=== PATIENT | female | born 1980 | race Caucasian/White ===

== ENCOUNTER 2017-03-13 03:31 | Emergency (ER) | payer OTHER ==
[2017-03-13] MEDS ORDERED: NS 0.9% 1000 ML* 1,000 ML IV ONE ×2 (03:45→08:13)
[2017-03-13] MEDS ORDERED: Morphine INJ* 4 MG/ML 1 ML SYRINGE IV ONE (03:46)
[2017-03-13] MEDS ORDERED: Ondansetron INJ* 2 MG/ML VIAL IV ONE ×2 (03:47→07:26)
[2017-03-13 04:49] LABS: Hematocrit 44 % (35-47); Hemoglobin 14.7 g/dl (12.0-16.0); Mean Corpuscular HGB Conc 33 g/dl (31-36); Mean Corpuscular Hemoglobin 29 pg (27-31); Mean Corpuscular Volume 87 fL (80-97); Mean Platelet Volume 9 um3 (7.4-10.4); Red Blood Count 5.08 10^6/ul (4.0-5.4); Red Cell Distribution Width 13 % (10.5-15); White Blood Count 17.3 10^3/ul (3.5-10.8)
[2017-03-13 05:01] LABS: ALT 17 U/L (7-52); AST 18 U/L (13-39); Albumin 4.8 g/dL (3.2-5.2); Alkaline Phosphatase 73 U/L (34-104); Anion Gap 9 mmol/L (2-11); Blood Urea Nitrogen 16 mg/dL (6-24); CO2 Carbon Dioxide 23 mmol/L (22-32); Calcium 9.7 mg/dL (8.6-10.3); Chloride 104 mmol/L (101-111); EGFR African American 68.6 (>60); EGFR Non-African American 53.3 (>60); Globulin 3.1 g/dL (2-4); Glucose 136 mg/dL (70-100); Lipase 24 U/L (11.0-82.0); Potassium 4.4 mmol/L (3.5-5.0); Sodium 136 mmol/L (133-145); Total Protein 7.9 g/dL (6.4-8.9)
[2017-03-13] MEDS ORDERED: Iodixanol* (CONTRAST) 320 MG/ML 100 ML SDV IV ONE (05:41)
[2017-03-13 06:22] LABS: Urine Bilirubin Negative (Negative); Urine Glucose Negative (Negative); Urine Nitrite Negative (Negative)
[2017-03-13] MEDS ORDERED: Ondansetron INJ* 2 MG/ML VIAL ONE (07:26)
--- NOTE | 2017-03-13 08:40 | RAD ---
INDICATION: Abdominal pain. Clinical concern for appendicitis. COMPARISON: April 18, 2016 CT. TECHNIQUE: Multidetector CT images were obtained from the lung bases to the ischial tuberosities with 74 mL Visipaque 320 IV and oral contrast. Multiplanar reformation. REPORT: Unremarkable visualized inferior thorax. Unremarkable liver, gallbladder, pancreas, spleen. There is mild mural thickening at the gastric antrum without associated perienteric inflammatory change. There is mild dilatation of jejunal bowel loops measuring up to 3.3 cm diameter with only minimal wall thickening. The remainder of the small bowel including the terminal ileum is unremarkable. Enteric contrast passes to the descending colon. Diminutive appendix is visualized lateral to the cecum best seen on the coronal images. There is no inflammatory change of the RIGHT lower quadrant. Negative for ascites, free air, or significant hernias. Normal adrenal glands. Unremarkable kidneys with symmetric nephrograms and pyelograms. Unremarkable nondilated ureters and urinary bladder. Rightward deviated anteverted uterus without suspicious CT finding. Unremarkable adnexal regions. Small normal size range mesenteric lymph nodes visualized. Negative for lymphadenopathy. Normal diameter abdominal aorta and iliac arteries. Physiologic distention of the IVC. Negative for suspicious osseous lesions. IMPRESSION: 1. Mild mural thickening at the gastric antrum and mild dilatation and mucosal thickening at the jejunum with intervening normal duodenum. No abrupt transition point to suggest bowel obstruction. Consider ileus secondary to gastroenteritis or potentially inflammatory bowel disease/Crohn's disease given involvement of 2 bowel segments with an intervening skip. 2. No evidence for appendicitis. Results discussed with Dr. Magaña 03/13/2017 8:35 AM EDT
--- NOTE | 2017-03-13 10:06 | RAD ---
HISTORY: Right upper quadrant pain, right lower quadrant pain COMPARISONS: None TECHNIQUE: Multiple transverse and longitudinal ultrasound images were obtained of the right upper quadrant of the abdomen using grayscale and color Doppler imaging. FINDINGS: LIVER: The liver is normal in shape, size, contour, and echogenicity. There are no focal parenchymal masses. There is normal hepatopedal flow of the portal vein on Doppler imaging. BILIARY TREE: There is no intrahepatic or extrahepatic biliary dilatation. The common duct measures 0.3 cm. GALLBLADDER: The gallbladder is well-visualized. There is no cholelithiasis, gallbladder wall thickening, pericholecystic fluid, or sonographic Glez sign. PANCREAS: The head of the pancreas is unremarkable. The tail of the pancreas is not well visualized secondary to overlying bowel gas. RIGHT KIDNEY: The right kidney is normal in shape, size, contour, and echogenicity. There is no hydronephrosis or nephrolithiasis. The right kidney measures 9.9 x 3.9 x 4.7 cm. AORTA AND IVC: The aorta and IVC are unremarkable. FLUID: There are no pleural effusions. There is no free fluid within the hepatorenal recess. OTHER FINDINGS: None. IMPRESSION: NO ACUTE SONOGRAPHIC PATHOLOGY OF THE VISUALIZED PORTION OF THE ABDOMEN
--- NOTE | 2017-03-13 10:07 | RAD ---
INDICATION: Right upper quadrant pain COMPARISON: Gallbladder sonogram March 13, 2017 TECHNIQUE: Longitudinal and transverse transabdominal scans of the pelvis were obtained. FINDINGS: Uterus: The uterus is normal in size. There are no focal masses. The uterus measures 8.5 x 4.9 x 5.6 cm. Endometrial thickness: The endometrial thickness is measured at 1.2 cm. Free fluid: There is a small amount of free fluid in the cul-de-sac. Ovaries: The ovaries are normal in size. The right ovary measures 3.9 x 1.8 x 1.5 cm. The left ovary measures 2.6 x 2.3 x 1.8 cm. There is a 1.1 cm right ovarian cyst. Doppler interrogation demonstrates flow to each ovary. Other: None IMPRESSION: SMALL RIGHT OVARIAN CYST, LIKELY A FUNCTIONAL CYST. SMALL AMOUNT OF FREE FLUID LIKELY REPRESENTING PHYSIOLOGIC FREE FLUID
[2017-03-13] MEDS ORDERED: Ciprofloxacin TAB* 500 MG PO ONE (11:26)
[2017-03-13] MEDS ORDERED: metroNIDAZOLE TAB* 250 MG PO ONE (11:26)
[2017-03-13 11:37] VITALS: BP 101/64
--- NOTE | 2017-03-13 18:08 | ED ---
IRaúl Billy, scribed for Jared Magaña MD on 03/13/17 at 0816 . Progress - Progress Note Progress Note: Patient was signed out by Dr. Valenzuela at shift change pending CT imaging. - Results/Orders Results/Orders: CT ABD/PEL W: 1. Mild mural thickening at the gastric antrum and mild dilatation and mucosal thickening at the jejunum with intervening normal duodenum. No abrupt transition point to suggest bowel obstruction. Consider ileus secondary to gastroenteritis or potentially inflammatory bowel disease/ Crohn's disease given involvement of 2 bowel segments with an intervening skip. 2. No evidence for appendicitis. US PELVIC: SMALL RIGHT OVARIAN CYST, LIKELY A FUNCTIONAL CYST. SMALL AMOUNT OF FREE FLUID LIKELY REPRESENTING PHYSIOLOGIC FREE FLUID. US ABDOMEN LIMITED: NO ACUTE SONOGRAPHIC PATHOLOGY OF THE VISUALIZED PORTION OF THE ABDOMEN. Re-Evaluation - Re-Evaluation First Eval Re-Evaluation Time: 08:14 Comment: Patient is pointing to pain at RUQ and just above the right hip. Her skin feels hot to touch. Temporal temperature measured at 100.0F, and we will have the nurse confirm this measurement. Second Eval Re-Evaluation Time: 11:14 Change: Improved Comment: Pain is under control. Patient feels better. Course/Dx - Diagnoses Provider Diagnoses: bowel inflammation Discharge - Discharge Plan Condition: Stable Disposition: HOME Patient Education Materials: Crohn Disease (ED) Referrals: Ac Hogdes DO [Primary Care Provider] - 2 Days Clemente Hooks MD [Medical Doctor] - 2 Days Additional Instructions: FOLLOW UP WITH DR. HOOKS, GI SPECIALIST. The documentation as recorded by the Raúl michaels Billy accurately reflects the service I personally performed and the decisions made by me, Jared Magaña MD.
--- NOTE | 2017-03-16 05:17 | ED ---
Davey Zamora Alok, scribed for Robert Valenzuela on 03/13/17 at 0348 . Abdominal Pain/Female - HPI Summary HPI Summary: 36 y/o female presents to the ED for right sided abd pain. Pt state that the pain comes and goes and is accompanied by N/V/D. Pt denies hematuria. Pt denies h/o kidney stones or past abd surgeries. - History of Current Complaint Chief Complaint: EDFlankPain Stated Complaint: ABD PAIN Time Seen by Provider: 03/13/17 03:35 Hx Last Menstrual Period: 08/01/15 ?: No Onset/Duration: Gradual Onset, Still Present Timing: Intermittent Episode Lasting Severity Initially: Moderate Severity Currently: Moderate Pain Intensity: 6 Pain Scale Used: 0-10 Numeric Location: Discrete At: RLQ Associated Signs and Symptoms: Positive: Nausea, Vomiting, Diarrhea. Negative: Other: - Hematuria Allergies/Adverse Reactions: Allergies Allergy/AdvReac Type Severity Reaction Status Date / Time No Known Allergies Allergy Verified 03/13/17 03:40 PMH/Surg Hx/FS Hx/Imm Hx Endocrine/Hematology History: Denies: Hx Diabetes, Hx Thyroid Disease Cardiovascular History: Reports: Hx Hypertension - ONLY DURING Denies: Hx Congestive Heart Failure Respiratory History: Denies: Hx Asthma, Hx Chronic Obstructive Pulmonary Disease (COPD) GI History: Reports: Hx Ulcer - Pt states she was previously suspected of having an ulcer but not confirmed History: Denies: Hx Renal Disease Sensory History: Reports: Hx Contacts or Glasses - GLASSES Denies: Hx Hearing Aid Opthamlomology History: Reports: Hx Contacts or Glasses - GLASSES Neurological History: Reports: Hx Migraine - TREATS WITH IBUPROFEN Psychiatric History: Reports: Hx Anxiety - NO MEDICATON FOR- STATES COMES AND GOES, Hx Depression - NO MEDICATION FOR- STATES COMES AND GOES - Surgical History Surgery Procedure, Year, and Place: wisdom teeth-OFFICE. leep 4 yrs ago-OFFICE Hx Anesthesia Reactions: No Infectious Disease History: No Infectious Disease History: Denies: Hx Clostridium Difficile, Hx Hepatitis, Hx Human Immunodeficiency Virus (HIV), Hx of Known/Suspected MRSA, Hx Shingles, Hx Tuberculosis, Hx Known/ Suspected VRE, Hx Known/Suspected VRSA, History Other Infectious Disease, Traveled Outside the [place] in Last 30 Days - Family History Known Family History: Positive: Other - No - maligant hypothermia. No - anesthesia reaction - Social History Occupation: Unemployed Lives: With Family Alcohol Use: Rare Alcohol Amount: few times per year Substance Use Type: Reports: None Smoking Status (MU): Former Smoker Type: Cigarettes Amount Used/How Often: 1-5 cig/day x 2 yrs Length of Time of Smoking/Using Tobacco: 2 yr Have You Smoked in the Last Year: No Review of Systems Negative: Fever Positive: Abdominal Pain, Vomiting, Diarrhea, Nausea Negative: hematuria All Other Systems Reviewed And Are Negative: Yes Physical Exam Triage Information Reviewed: Yes Vital Signs On Initial Exam: Initial Vitals Temp Pulse Resp BP Pulse Ox 99.7 F 89 15 115/90 100 03/13/17 03:38 03/13/17 03:38 03/13/17 03:38 03/13/17 03:38 03/13/17 03:38 Vital Signs Reviewed: Yes Appearance: Positive: Well-Appearing, No Pain Distress Skin: Positive: Warm, Skin Color Reflects Adequate Perfusion, Dry Head/Face: Positive: Normal Head/Face Inspection Eyes: Positive: EOMI, REEMA ENT: Positive: Normal ENT inspection Neck: Positive: Supple, Nontender Respiratory/Lung Sounds: Positive: Clear to Auscultation, Breath Sounds Present Cardiovascular: Positive: RRR, Pulses are Symmetrical in both Upper and Lower Extremities Abdomen Description: Positive: Soft, Other: - right lower quadrant tenderness Bowel Sounds: Positive: Present Musculoskeletal: Positive: Normal, Strength/ROM Intact Neurological: Positive: Normal, Sensory/Motor Intact, Alert, Oriented to Person Place, Time Diagnostics - Vital Signs Vital Signs Temp Pulse Resp BP Pulse Ox 03/13/17 03:38 99.7 F 89 15 115/90 100 - Laboratory Lab Results: Lab Results 03/13/17 03/13/17 03/13/17 Range/Units 04:35 04:35 06:12 WBC 17.3 H (3.5-10.8) 10^3/ul RBC 5.08 (4.0-5.4) 10^6/ul Hgb 14.7 (12.0-16.0) g/dl Hct 44 (35-47) % MCV 87 (80-97) fL MCH 29 (27-31) pg MCHC 33 (31-36) g/dl RDW 13 (10.5-15) % Plt Count 301 (150-450) 10^3/ul MPV 9 (7.4-10.4) um3 Neut % (Auto) 92.5 H (38-83) % Lymph % (Auto) 3.3 L (25-47) % Major % (Auto) 3.6 (1-9) % Eos % (Auto) 0.3 (0-6) % Baso % (Auto) 0.3 (0-2) % Absolute Neuts (auto) 16.0 H (1.5-7.7) 10^3/ul Absolute Lymphs (auto) 0.6 L (1.0-4.8) 10^3/ul Absolute Monos (auto) 0.6 (0-0.8) 10^3/ul Absolute Eos (auto) 0.1 (0-0.6) 10^3/ul Absolute Basos (auto) 0 (0-0.2) 10^3/ul Absolute Nucleated RBC 0 10^3/ul Nucleated RBC % 0 Sodium 136 (133-145) mmol/L Potassium 4.4 (3.5-5.0) mmol/L Chloride 104 (101-111) mmol/L Carbon Dioxide 23 (22-32) mmol/L Anion Gap 9 (2-11) mmol/L BUN 16 (6-24) mg/dL Creatinine 1.14 H (0.51-0.95) mg/dL Est GFR ( Amer) 68.6 (>60) Est GFR (Non-Af Amer) 53.3 (>60) BUN/Creatinine Ratio 14.0 (8-20) Glucose 136 H (70-100) mg/dL Calcium 9.7 (8.6-10.3) mg/dL Total Bilirubin 0.80 (0.2-1.0) mg/dL AST 18 (13-39) U/L ALT 17 (7-52) U/L Alkaline Phosphatase 73 (34-104) U/L Total Protein 7.9 (6.4-8.9) g/dL Albumin 4.8 (3.2-5.2) g/dL Globulin 3.1 (2-4) g/dL Albumin/Globulin Ratio 1.5 (1-3) Lipase 24 (11.0-82.0) U/L Beta HCG, Quant < 0.60 mIU/mL Urine Color Yellow Urine Appearance Clear Urine pH 7.0 (5-9) Ur Specific [place] 1.029 (1.010-1.030) Urine Protein Negative (Negative) Urine Ketones Negative (Negative) Urine Blood Negative (Negative) Urine Nitrate Negative (Negative) Urine Bilirubin Negative (Negative) Urine Urobilinogen Negative (Negative) Ur Leukocyte Esterase Negative (Negative) Urine Glucose Negative (Negative) Result Diagrams: 03/13/17 04:35 03/13/17 04:35 Lab Statement: Any lab studies that have been ordered have been reviewed, and results considered in the medical decision making process. - CT Abd/Pel CT CT Interpretation: Positive (See Comments) - Pending Report CT Interpretation Completed By: Radiologist Abdominal Pain Fem Course/Dx - Course Course Of Treatment: Pt signed out to Dr. Magaña at shift change - Diagnoses Provider Diagnoses: bowel inflammation Discharge - Discharge Plan Condition: Stable Disposition: OTHER Discharge Disposition Comment: signed out dr magaña Prescriptions: Ciprofloxacin TAB* [Cipro 500 MG TAB*] 500 mg PO BID #20 tab Ondansetron ODT TAB* [Zofran 4 MG Odt TAB*] 4 mg PO Q8H PRN #10 tab.odt PRN Reason: Nausea/Vomiting metroNIDAZOLE TAB* [Flagyl 250 mg TAB*] 250 mg PO QID #40 tab traMADol TAB* [Ultram*] 25 mg PO Q6HR PRN #8 tab MDD 4 PRN Reason: Pain - Moderate To Severe Patient Education Materials: Crohn Disease (ED) Referrals: Ac Hodges DO [Primary Care Provider] - 2 Days Clemente Hooks MD [Medical Doctor] - 2 Days Additional Instructions: FOLLOW UP WITH DR. HOOKS, GI SPECIALIST. The documentation as recorded by the Davey michaels Alok accurately reflects the service I personally performed and the decisions made by , Robert Valenzuela.
== END 2017-03-13 11:36 ==
LOC: ED 03:31
DX: K51.90 Ulcerative colitis, unspecified, without complications (principal); N83.201 Unspecified ovarian cyst, right side; Z32.02 Encounter for pregnancy test, result negative; R11.2 Nausea with vomiting, unspecified; R19.7 Diarrhea, unspecified; G43.909 Migraine, unspecified, not intractable, without status migrainosus; Z87.891 Personal history of nicotine dependence
CPT/HCPCS: 36415; 74177; 76705; 76856; 80053; 81003; 83690; 84702; 85025; 96361; 96374; 96375; 96376; 99283; A9270-GY; J2270; J2405; Q9967

== ENCOUNTER 2018-01-09 07:18 | Day surgery (SDC) | payer OTHER ==
[~2018-01-09 07:18] MED LIST: Buffered Lidocaine 0.9% SYRIN* 5 ML/SYR SYRINGE INTRADERM ONE; Buffered Lidocaine 0.9% SYRIN* 5 ML/SYR SYRINGE ONE; Dexamethasone IV* 4 MG/ML 1 ML (4 MG) IV SLOW PU ONE; Dexamethasone IV* 4 MG/ML 1 ML (4 MG) ONE; Famotidine IV* 10 MG/ML 2 ML (20 mg) IV ONE; Famotidine IV* 10 MG/ML 2 ML (20 mg) ONE
[2018-01-09] MEDS ORDERED: Midazolam* 1 MG/ML 2 ML VIAL (2 MG) ONE (07:51)
[2018-01-09] MEDS ORDERED: fentaNYL* 50 MCG/ML 2 ML VIAL (100 MCG VIAL) ONE (07:51)
[2018-01-09] MEDS ORDERED: Ondansetron INJ* 2 MG/ML VIAL ONE (07:54)
[2018-01-09] MEDS ORDERED: Ketorolac INJ* 30 MG/ML 1 ML VIAL ONE (07:54)
[2018-01-09] MEDS ORDERED: Propofol* 10 MG/ML 20 ML BTL IV PUSH ONE (07:54)
[2018-01-09] MEDS ORDERED: Succinylcholine* 20 MG/ML 10 ML VIAL ONE (07:54)
[2018-01-09] MEDS ORDERED: Bupivacaine 0.25% SDV* 30 ML ONE (08:22)
[2018-01-09] MEDS ORDERED: Lidocaine 2% PF * 5 ML VIAL ONE (08:43)
[2018-01-09] MEDS ORDERED: Propofol* 500 MG/50 ML BTL ONE (09:18)
[2018-01-09] MEDS ORDERED: Naloxone* 0.4 MG/ML 1 ML VIAL IV PRN (10:01)
[2018-01-09] MEDS ORDERED: fentaNYL* 50 MCG/ML 2 ML VIAL (100 MCG VIAL) IV PRN (10:01)
[2018-01-09] MEDS ORDERED: DiMENhydriNATE IV* 50 MG/ML VIAL IV PUSH PRN (10:01)
[2018-01-09] MEDS ORDERED: oxyCODONE/Acetamin 5/325 MG* TAB ONE (10:46)
[2018-01-09 11:03] VITALS: BP 123/87
--- NOTE | 2018-01-10 15:21 | OP ---
DATE OF OPERATION: 01/09/18 - [facility] DATE OF : 76 SURGEON: Hesham Lane MD ANESTHESIOLOGIST: Dr. Molina. ANESTHESIA: General endotracheal. PRE-OP DIAGNOSES: Abnormal uterine bleeding, menorrhagia, and right and left abdominal pain. POST-OP DIAGNOSES: Abnormal uterine bleeding, menorrhagia, right and left abdominal pain, and endometriosis. OPERATIVE PROCEDURE: Diagnostic hysteroscopy, dilation and curettage, and diagnostic laparoscopy. ESTIMATED BLOOD LOSS: Minimal. URINE OUTPUT: 300 cc. IV FLUIDS: 700 cc lactated Ringer's. MATERIALS TO LAB: Endometrial curettings. INDICATIONS: This patient is a 37-year-old 3, para 2, who presented to the office with complaint of progressively worsening abnormal uterine bleeding. The uterus was noted to have a small fibroid and there was also possible evidence of an endometrial polyp. In addition, the patient reported some persistent, but intermittent right and left abdominal pains, which had been going on for at least 6 months. Previous evaluation has not noted any abnormalities and she desired to have further evaluation. She was extensively counseled and consent was signed for hysteroscopy with polypectomy as indicated , dilation and curettage, and a diagnostic laparoscopy. FINDINGS: Normal appearing uterine cavity with no visible abnormalities within the uterus. On laparoscopy, the patient's pelvis was mostly normal with a normal- appearing uterus, fallopian tubes, and ovaries. Appendix was also normal. Of note, there were a few sites of obvious endometriosis, both in the posterior cul-de- sac near the uterosacral ligaments and the ureter as well as in the anterior region near the bladder. There is also a small approximately 5 mm mobile nodule noted near the patient's left uterosacral ligament. The liver and gallbladder appeared normal grossly. COMPLICATIONS: None. DESCRIPTION OF PROCEDURE: The risks, benefits, and alternatives were described to the patient and informed consent was obtained. The patient was taken to the operating room with IV running, where general anesthesia was induced and found to be adequate. The patient was prepped and draped in the normal sterile fashion in the high lithotomy position in [facility]. A Zelaya catheter was placed and a time-out was performed. A bivalved speculum was placed in the vagina and a single-toothed tenaculum was placed on the anterior cervix. The uterus was sounded to about 9 cm. The cervix was gently dilated using Hanks dilators to a size 27. At that time, a hysteroscope was advanced through the cervix and into the uterine cavity without difficulty. Saline was managed with an Aquilex fluid management system. The uterine cavity was clearly visualized and there was no visible evidence of polyps or fibroids present. Both tubal ostia were visualized. Hysteroscope was then removed and a curettage was performed using a medium banjo curette. The curettings were collected on Telfa. The tenaculum was then removed from the cervix and there was good hemostasis present. The Hulka tenaculum was then placed through the cervix and into the uterus and clamped down. The speculum was then removed and the patient was returned to a low lithotomy position. Gloves were changed and attention was turned to the abdomen. A 0.25% Marcaine was then injected into the patient's umbilicus. Approximately 5 cm incision was then made with a scalpel in the umbilicus. Penetrating towel clamps were placed on other side of the umbilicus to elevate the skin. A 5-mm bladeless trocar was then placed through the incision into the peritoneal cavity without difficulty under direct visualization. The abdomen was insufflated with carbon dioxide gas to a maximum pressure of 15 mmHg. The towel clamps were removed and the area below the trocar insertion site was carefully inspected and there was no evidence of trauma or bleeding. The patient was then placed in a Trendelenburg position. A 0.25% Marcaine was then injected about 2 cm above the pubic symphysis in the midline. Another 5 mm incision was then made and a second 5 mm bladeless trocar was placed into the peritoneal cavity. A blunt grasper was then used to sweep the bowel out of the pelvis for the best visualization. There was excellent visualization of the entire pelvis and the findings are noted above. The largest area of endometriosis was present in the posterior cul-de-sac; however, as it was right over the right ureter, this was left in place and not treated. Both ovaries and fallopian tubes appeared normal. Once the appendix, liver, gallbladder, and bowel had been visualized, the procedure was discontinued. No significant masses or scar tissue were present. The gas was allowed to escape. The patient was returned to a flat position. Both trocars were removed. The incisions were reapproximated using 4-0 Monocryl in a subcuticular stitch and both incisions were covered with DermaFlex skin adhesive. The Hulka tenaculum was then removed and there was good hemostasis present. The patient was returned to the supine position and allowed to awaken. The patient tolerated the procedure well. Sponge, lap, and needle counts were correct x2. [id number]/[facility] #: [id number] MTDD
== END 2018-01-09 11:36 | disposition home or self-care (01) ==
LOC: OR 07:18
PROVIDERS: ATTEND Obstetrics & Gynecology
DX: N93.9 Abnormal uterine and vaginal bleeding, unspecified (principal); R10.31 Right lower quadrant pain; Z87.891 Personal history of nicotine dependence; K21.9 Gastro-esophageal reflux disease without esophagitis; F41.8 Other specified anxiety disorders
CPT/HCPCS: 81025; 88305; A9270-GY; J0330; J1100; J1885; J2250; J2405; J2704; J3010